=== PATIENT | female | born 1960 | race Two or more races ===

== ENCOUNTER 2019-03-02 07:36 | Outpatient (CLI) | payer OTHER | END 2019-03-02 10:00 | disposition home or self-care (01) | LOC: SONOGRAMA 07:36 | DX: E04.2 Nontoxic multinodular goiter (principal) ==

== ENCOUNTER → 2020-07-18 14:29 | Outpatient (CLI) | payer OTHER | END | disposition home or self-care (01) | LOC: PPH VACUNA 14:29 | DX: Z23 Encounter for immunization (principal) ==